=== PATIENT | male | born 1960 | race Caucasian/White ===

== ENCOUNTER 2019-08-28 15:30 | Emergency (ER) | payer BC, OTHER ==
--- NOTE | 2019-08-28 19:58 | ER ---
REASON FOR EMERGENCY ROOM VISIT: Laceration, chin. HISTORY: This is a 59-year-old man who was at home, working on a car, and using an impact wrench when one of the nuts flew off from the wrench and struck him in the chin causing a laceration. He sustained no other injuries. Did not have any syncopal episodes related to this. PAST MEDICAL HISTORY: Hip replacement, otherwise unremarkable. MEDICATIONS: None. ALLERGIES: NONE. REVIEW OF SYSTEMS: Unremarkable. PHYSICAL EXAMINATION: SKIN: He has a 3.5 cm curvilinear laceration just to the left of the midline over the left chin anteriorly. It goes into the subcutaneous tissue. There is no bony crepitus or foreign body present. FURTHER EMERGENCY ROOM COURSE: The laceration was cleansed with Hibiclens and water and then the area was anesthetized with approximately 4 mL of 1% xylocaine with epinephrine. The laceration in the surrounding area was painted with Betadine, and the skin edges were approximated with a running 5-0 monofilament nylon suture. Approximately 10 of these were required in a continuous fashion. Antibiotic ointment was applied over this as well as a sterile dressing. He was instructed regarding wound care and symptoms and signs of infection. Suture removal was recommended within the next 7-8 days. All questions were answered. He and his understand and agree. APRIL/DAVE /[id number]
[2019-08-28] MEDS ORDERED: Diphtheria,Pertussis(Acell),Tetanus Vaccine 0.5 ML SDV IM ONE (20:19)
== END 2019-08-28 16:45 | disposition home or self-care (01) ==
LOC: LB.ED 15:30
DX: S01.81XA Laceration without foreign body of other part of head, initial encounter (principal); Z23 Encounter for immunization; W22.8XXA Striking against or struck by other objects, initial encounter; Y92.009 Unspecified place in unspecified non-institutional (private) residence as the place of occurrence of the external cause
CPT/HCPCS: 12013; 90471; 90715; 99282; 99282-25